=== PATIENT | male | born 1930 | race Caucasian/White ===

== ENCOUNTER 2019-09-30 15:40 | Emergency (ER) | payer OTHER ==
[~2019-09-30] VITALS: Ht 180.3 cm; Wt 99.8 kg
[~2019-09-30 15:40] MED LIST: ALBU90OI INH; ATOR10 PO; Aspirin EC81 MG PO; FISH1000 PO; METO25ER PO; MOME220I INH; MULVITMIND PO; TAMS.4ER PO
[2019-09-30 16:08] LABS: Source, Urine Clean Catch
[2019-09-30 16:17] LABS: Appearance, Urine Clear (Clear); Bilirubin, Urine Neg (Neg); Blood, Urine 5+ (Neg); Color, Urine Yellow (P-Yellow); Glucose Qualitative, Urine Neg (Neg); Ketones, Urine Neg (Neg); Leukocyte Esterase, Urine 1+ (Neg); Nitrite, Urine Neg (Neg); Protein, Urine 3+ (Neg); Urobilinogen, Urine NORM (Normal)
[2019-09-30 16:21] LABS: BASOPHILS ABSOLUTE AUTO 0.02 K/mm3 (0.00-0.23); BASOPHILS PERCENT AUTO 0 % (0-2); EOSINOPHILS ABSOLUTE AUTO 0.21 K/mm3 (0.00-0.68); EOSINOPHILS PERCENT AUTO 3 % (0-6); Hematocrit 46.8 % (37.0-53.0); Hemoglobin 15.1 g/dL (13.5-17.5); IMMATURE GRAN ABSOLUTE AUTO 0.01 K/mm3 (0.00-0.10); IMMATURE GRAN PERCENT AUTO 0 % (0-1); LYMPHOCYTES ABSOLUTE AUTO 2.12 K/mm3 (0.84-5.20); LYMPHOCYTES PERCENT AUTO 29 % (21-46); MONOCYTES ABSOLUTE AUTO 0.77 K/mm3 (0.16-1.47); MONOCYTES PERCENT AUTO 11 % (4-13); Mean Corpuscular HGB 31.3 pg (26.0-34.0); Mean Corpuscular HGB Conc 32.3 g/dL (31.5-36.5); Mean Corpuscular Volume 97 fL (80-100); Mean Platelet Volume 10.9 fL (9.1-12.4); NEUTROPHILS PERCENT AUTO 57 % (41-73); Platelet Count 148 K/mm3 (150-400); RDW Coefficient Variation 13.2 % (11.7-14.2); RDW Standard Deviation 47.3 fL (35.1-46.3); Red Blood Cell Count 4.83 M/mm3 (4.30-5.90); White Blood Cell Count 7.23 K/mm3 (4.00-11.30)
[2019-09-30 16:41] LABS: Alanine Aminotransfer (ALT/SGP 27 U/L (12-78); Albumin, Blood 3.7 g/dL (3.4-5.0); Albumin/Globulin Ratio 0.9 (0.8-1.8); Alk Phos 54 U/L (50-136); Anion Gap 6 mmol/L (6-16); Aspartate Aminotrans (AST/SGOT 28 U/L (12-37); Blood Urea Nitrogen 13 mg/dL (8-24); Bun/Creatinine Ratio 16.8 (12.0-20.0); CO2, Blood 25 mmol/L (21-32); Chloride, Blood 108 mmol/L (98-108); Creatinine, Blood 0.77 mg/dL (0.60-1.20); Globulin, Blood 4.1 g/dL (2.2-4.0); Glomerular Filtration Rate >60 (60-); Glucose, Blood 93 mg/dL (70-99); Potassium, Blood 4.1 mmol/L (3.5-5.5); Sodium, Blood 139 mmol/L (136-145); Total Protein, Blood 7.8 g/dL (6.4-8.2)
[2019-09-30] MEDS ORDERED: ELIQUIS2.5 MG PO (16:47)
[2019-09-30] MEDS ORDERED: ATORVASTATIN CA20 MG PO (16:50)
[2019-09-30] MEDS ORDERED: AMLO5 PO (16:51)
[2019-09-30] MEDS ORDERED: AZIT250 PO (16:51)
[2019-09-30] MEDS ORDERED: LEVA1.25 INH (16:51)
[2019-09-30] MEDS ORDERED: FISH OIL PO (16:52)
[2019-09-30] MEDS ORDERED: TIOT18 INH (16:53)
[2019-09-30] MEDS ORDERED: B Complex-Foli1 EACH PO (16:53)
[2019-09-30 16:56] LABS: Red Blood Cells, Urine 25-50 /hpf (0-2); White Blood Cells, Urine 0-2 /hpf (0-5)
[2019-09-30 16:57] LABS: Bacteria Mod /hpf; Mucus Light (0-Heavy); Squamous Epithelial Cells Few /hpf (Few)
[2019-09-30] MEDS ORDERED: Norco 5-325 Ta1 EACH PO (17:32)
[2019-09-30] MEDS ORDERED: Flomax0.4 MG PO (17:32)
== END 2019-09-30 17:55 | disposition home or self-care (01) ==
LOC: ER 15:40
PROVIDERS: Physician Assistant
DX: N13.2 Hydronephrosis with renal and ureteral calculous obstruction (principal); Z79.899 Other long term (current) drug therapy; Z87.891 Personal history of nicotine dependence
CPT/HCPCS: 36415; 74176; 80053; 81001; 83690; 85025; 87086; 96374; 96375; 99284-25; J1885; J2405; J7030

== ENCOUNTER 2021-07-08 20:57 | Emergency (ER) | payer OTHER ==
[~2021-07-08] VITALS: Ht 180.3 cm; Wt 93.9 kg
[~2021-07-08 20:57] MED LIST changes: +AMLO5 PO; +ATORVASTATIN CA20 MG PO; +AZIT250 PO; +B Complex-Foli1 EACH PO; +ELIQUIS2.5 MG PO; +FISH OIL PO; +Flomax0.4 MG PO; +LEVA1.25 INH; +Norco 5-325 Ta1 EACH PO; +TIOT18 INH
[2021-07-08 21:24] LABS: BASOPHILS ABSOLUTE AUTO 0.04 K/mm3 (0.00-0.23); BASOPHILS PERCENT AUTO 1 % (0-2); EOSINOPHILS PERCENT AUTO 5 % (0-6); Hematocrit 43.7 % (37.0-53.0); Hemoglobin 14.3 g/dL (13.5-17.5); IMMATURE GRAN ABSOLUTE AUTO 0.02 K/mm3 (0.00-0.10); IMMATURE GRAN PERCENT AUTO 0 % (0-1); LYMPHOCYTES ABSOLUTE AUTO 2.23 K/mm3 (0.84-5.20); LYMPHOCYTES PERCENT AUTO 34 % (21-46); MONOCYTES ABSOLUTE AUTO 0.76 K/mm3 (0.16-1.47); MONOCYTES PERCENT AUTO 12 % (4-13); Mean Corpuscular HGB 31.4 pg (26.0-34.0); Mean Corpuscular HGB Conc 32.7 g/dL (31.5-36.5); Mean Corpuscular Volume 96 fL (80-100); Mean Platelet Volume 10.5 fL (9.1-12.4); NEUTROPHILS ABSOLUTE AUTO 3.22 K/mm3 (1.96-9.15); NEUTROPHILS PERCENT AUTO 49 % (41-73); Platelet Count 183 K/mm3 (150-400); RDW Standard Deviation 46.4 fL (35.1-46.3); Red Blood Cell Count 4.56 M/mm3 (4.30-5.90); White Blood Cell Count 6.57 K/mm3 (4.00-11.30)
[2021-07-08 21:44] LABS: Alanine Aminotransfer (ALT/SGP 24 U/L (12-78); Albumin, Blood 3.3 g/dL (3.4-5.0); Albumin/Globulin Ratio 0.8 (0.8-1.8); Alk Phos 58 U/L (50-136); Anion Gap 6 mmol/L (6-16); Aspartate Aminotrans (AST/SGOT 18 U/L (12-37); Bilirubin, Total 0.5 mg/dL (0.1-1.0); Blood Urea Nitrogen 11 mg/dL (8-24); Bun/Creatinine Ratio 14.2 (12.0-20.0); CO2, Blood 29 mmol/L (21-32); Calcium, Blood 9.3 mg/dL (8.5-10.1); Chloride, Blood 107 mmol/L (98-108); Creatinine, Blood 0.78 mg/dL (0.60-1.20); Globulin, Blood 4.1 g/dL (2.2-4.0); Glomerular Filtration Rate >60 (60-); Glucose, Blood 103 mg/dL (70-99); Potassium, Blood 3.9 mmol/L (3.5-5.5); Sodium, Blood 142 mmol/L (136-145); Total Protein, Blood 7.4 g/dL (6.4-8.2); Troponin I <0.015 ng/mL (0.000-0.040)
== END 2021-07-09 00:47 | disposition home or self-care (01) ==
LOC: ER 20:57
PROVIDERS: Emergency Medicine
DX: I48.91 Unspecified atrial fibrillation (principal); R07.89 Other chest pain; I25.10 Atherosclerotic heart disease of native coronary artery without angina pectoris; Z88.8 Allergy status to other drugs, medicaments and biological substances; Z87.891 Personal history of nicotine dependence
CPT/HCPCS: 71046; 80053; 84484; 85025; 93005; 93010; 99285-25

== ENCOUNTER 2022-02-13 19:53 | Inpatient (IN) | payer OTHER ==
[~2022-02-13] VITALS: Ht 175.3 cm; Wt 90.7 kg
[2022-02-13 20:53] LABS: Hematocrit 37.3 % (37.0-53.0); Hemoglobin 12.7 g/dL (13.5-17.5); Mean Corpuscular HGB 31.4 pg (26.0-34.0); Mean Corpuscular Volume 92 fL (80-100); Mean Platelet Volume 11.4 fL (9.1-12.4); Platelet Count 86 K/mm3 (150-400); RDW Coefficient Variation 13.7 % (11.7-14.2); RDW Standard Deviation 46.9 fL (35.1-46.3); Red Blood Cell Count 4.05 M/mm3 (4.30-5.90); White Blood Cell Count 7.76 K/mm3 (4.00-11.30)
[2022-02-13 21:04] LABS: Albumin/Globulin Ratio 0.9 (0.8-1.8); Bilirubin, Total 0.8 mg/dL (0.1-1.0); Bun/Creatinine Ratio 26.7 (12.0-20.0); Calcium, Blood 8.2 mg/dL (8.5-10.1); Creatinine, Blood 0.71 mg/dL (0.60-1.20); Globulin, Blood 3.4 g/dL (2.2-4.0); Potassium, Blood 3.1 mmol/L (3.5-5.5); Total Protein, Blood 6.4 g/dL (6.4-8.2)
[2022-02-13 21:11] LABS: Magnesium, Blood 1.6 mg/dL (1.6-2.4)
[2022-02-13 21:12] LABS: Source, Urine Clean Catch
[2022-02-13 21:15] LABS: Appearance, Urine Hazy (Clear); Bilirubin, Urine Neg (Neg); Blood, Urine 4+ (Neg); Color, Urine Yellow (P-Yellow); Glucose Qualitative, Urine Neg (Neg); Ketones, Urine 3+ (Neg); Leukocyte Esterase, Urine Neg (Neg); Nitrite, Urine Neg (Neg); Protein, Urine 3+ (Neg); Specific Gravity, Urine 1.025 (1.003-1.022); Urobilinogen, Urine NORM (Normal)
[2022-02-13 21:17] LABS: BAND PERCENT MAN 33 % (0-8); BASOPHILS PERCENT MAN 0 % (0-2); EOSINOPHILS PERCENT MAN 0 % (0-6); LYMPHOCYTES % ATYPICAL MANUAL 1 % (0-0); LYMPHOCYTES ABSOLUTE MAN 0.62 K/mm3 (0.84-5.20); LYMPHOCYTES PERCENT MAN 7 % (21-46); MONOCYTES ABSOLUTE MAN 0.77 K/mm3 (0.16-1.47); MONOCYTES PERCENT MAN 10 % (4-13); NEUTROPHILS ABSOLUTE MAN 6.36 K/mm3 (1.96-9.15); SEG NEUTROPHILS PERCENT MAN 49 % (41-73); TOTAL CELLS COUNTED 100
[2022-02-13 21:22] LABS: Amorphous Light (0-Heavy); Bacteria Mod /hpf; Squamous Epithelial Cells Not Seen /hpf (Few); White Blood Cells, Urine 0-2 /hpf (0-5)
[2022-02-13 21:29] LABS: Influenza A, PCR NEGATIVE (NEGATIVE); Influenza B, PCR NEGATIVE (NEGATIVE); Resp Syncytial Virus, PCR NEGATIVE (NEGATIVE)
[2022-02-13 21:32] LABS: SARS-Cov-2 (COVID-19) PCR, MMC POSITIVE (NEGATIVE)
--- NOTE | 2022-02-14 04:39 | NUR ---
SHIFT SUMMARY 89 YR M ADMITTED ON 02/13/22 FOR RESPIRATORY FAILURE/COVID 19. DNR. PT TRANSFERED FROM ED AFTER C/O SEVERE WEAKNESS X SEVERAL DAYS. HIS FAMILY CLAIMS HE IS NORMALLY VERY ACTIVE BUT HE IS VERY WEAK AT THIS TIME. HE DENIES CHEST PAIN AND SOB BUT HIS BREATHING IS OBVIOUSLY LABORED. CURRENTLY ON 2.5 L O2 BUT HIS BASELINE IS R/A.LOW GRADE TEMP RESOLVED W/ TYLENOL. PT IS ELY SHOSHONE BUT IS PLEASANT AND COOPERATIVE.
[2022-02-14 12:24] LABS: Adenovirus F 40/41 Not Detected (NOT DETECT); Astrovirus Not Detected (NOT DETECT); Campylobacter Sp Not Detected (NOT DETECT); Cryptosporidium Not Detected (NOT DETECT); Cyclospora Cayetanensis Not Detected (NOT DETECT); E. Coli O157 Not Detected (NOT DETECT); Entamoeba Histolytica Not Detected (NOT DETECT); Enteroaggregative E. coli-EAEC Not Detected (NOT DETECT); Enteropathogenic E. coli-EPEC Not Detected (NOT DETECT); Enterotoxigenic E. coli-ETEC Not Detected (NOT DETECT); Giardia Lamblia Not Detected (NOT DETECT); Norovirus GI/GII Not Detected (NOT DETECT); Plesiomonas Shigelloides Not Detected (NOT DETECT); Rotavirus A Not Detected (NOT DETECT); Salmonella Sp Not Detected (NOT DETECT); Sapovirus Not Detected (NOT DETECT); Shiga Toxin-prod E. coli-STEC Not Detected (NOT DETECT); Shigella/Enteroin E. coli-EIEC Not Detected (NOT DETECT); Vibrio Cholerae Not Detected (NOT DETECT); Vibrio Sp Not Detected (NOT DETECT); Yersinia Enterocolitica Not Detected (NOT DETECT)
--- NOTE | 2022-02-14 19:56 | NUR ---
SUMMARY- PT A/O X3. UP IN CHAIR THIS AM AND FOR MEALS. AMBULATES TO BATHROOM SBA. KNOWS HIS LIMITS AND USES HIS CALL LIGHT. RESP EVEN AND UNLABORED. OXYGEN 2L/NC, LUNGS CLEAR, DIM BASES, SATS 97%, NO SOB OR DYSPNEA NOTED WITH ACTIVITY. MAIN COMPLAINT IS WEAKNESS. TOLERATING FOOD AND FLUIDS. IVF NS @75ML/HR. HAVING LOOSE STOOL. STARTING ON BANANA FLAKES. GI PANAL NEGATIVE. REPORTED ALL TO NOC RN.
[2022-02-15 05:16] LABS: Hematocrit 39.7 % (37.0-53.0); Hemoglobin 13.5 g/dL (13.5-17.5); Mean Corpuscular Volume 91 fL (80-100); Mean Platelet Volume 11.7 fL (9.1-12.4); Platelet Count 80 K/mm3 (150-400); RDW Coefficient Variation 13.7 % (11.7-14.2); RDW Standard Deviation 46.7 fL (35.1-46.3); Red Blood Cell Count 4.35 M/mm3 (4.30-5.90); White Blood Cell Count 7.67 K/mm3 (4.00-11.30)
--- NOTE | 2022-02-15 05:23 | NUR ---
PT CONTINUES TO BE INCONTINENT WITH LIQUID BROWN STOOL. PT IS A 1 PERSON ASSIST TO THE BATHROOM. IV INFUSING, ALERT AND ORIENTED WITH SHORT TERM MEMORY LOSS.
[2022-02-15 05:30] LABS: Albumin, Blood 2.6 g/dL (3.4-5.0); Albumin/Globulin Ratio 0.8 (0.8-1.8); Bilirubin, Total 0.7 mg/dL (0.1-1.0); Bun/Creatinine Ratio 29.5 (12.0-20.0); Calcium, Blood 8.4 mg/dL (8.5-10.1); Creatinine, Blood 0.54 mg/dL (0.60-1.20); Globulin, Blood 3.4 g/dL (2.2-4.0); Magnesium, Blood 1.8 mg/dL (1.6-2.4); Potassium, Blood 3.4 mmol/L (3.5-5.5); Thyroid Stimulating Hormone 0.548 uIU/mL (0.360-4.800)
--- NOTE | 2022-02-15 17:57 | NUR ---
SHIFT SUMMARY PATIENT A&0X3, HX DEMENTIA. SBA WITH WALKER TO BSC AND CHAIR. COVID +. ON 2L O2 VIA NC. MOIST COUGH PRESENT. POOR APPETITE, ONLY EATING A FEW BITES T/O SHIFT AND SIPPING WATER. 1 EPISODE OF LIQUID DIARRHEA. RECEIVING IV FLUIDS. LOW GRADE TEMP. OTHER VITALS STABLE. WILL CONTINUE TO MONITOR.
[2022-02-16 05:15] LABS: Hematocrit 38.8 % (37.0-53.0); Hemoglobin 13.2 g/dL (13.5-17.5); Mean Corpuscular HGB 31.1 pg (26.0-34.0); Mean Corpuscular Volume 91 fL (80-100); Mean Platelet Volume 11.7 fL (9.1-12.4); Platelet Count 89 K/mm3 (150-400); RDW Coefficient Variation 13.7 % (11.7-14.2); RDW Standard Deviation 46.5 fL (35.1-46.3); Red Blood Cell Count 4.25 M/mm3 (4.30-5.90); White Blood Cell Count 7.99 K/mm3 (4.00-11.30)
[2022-02-16 05:36] LABS: Albumin, Blood 2.3 g/dL (3.4-5.0); Albumin/Globulin Ratio 0.7 (0.8-1.8); Bun/Creatinine Ratio 27.7 (12.0-20.0); Calcium, Blood 8.1 mg/dL (8.5-10.1); Creatinine, Blood 0.51 mg/dL (0.60-1.20); Globulin, Blood 3.3 g/dL (2.2-4.0); Total Protein, Blood 5.6 g/dL (6.4-8.2)
--- NOTE | 2022-02-16 06:17 | NUR ---
SHIFT SUMMARY NOC: PT SLEPT ALL NIGHT. PT VERY WEAK, INITIALLY UNABLE TO SIT UP IN BED THIS AM TO USE URINAL. AFTER AWHILE OF TRYING PT WAS ABLE TO SIT UP IN BED BUT UNABLE TO STAND. PT REMAINS ON 2L NC LUNGS WET CONGESTED WITH NON PRODUCTIVE COUGH, SOB WITH EXERTION.
[2022-02-16] MEDS ORDERED: PROAIR DIGIHAL90 MCG INH (13:58)
[2022-02-16] MEDS ORDERED: BANATROL PLUS1 EAC1 PO (13:59)
[2022-02-16] MEDS ORDERED: VITAMIN D5000 UNIT PO (14:00)
[2022-02-16] MEDS ORDERED: DECADRON6 M1 (14:01)
--- NOTE | 2022-02-16 18:31 | NUR ---
DISCHARGE PT DISCHARGED AT 1726. PRIOR TO DC, PT AND HIS GRANDDAUGHTER WERE EDUCATED ON NEW MEDS AND FOLLOW UP INSTRUCTIONS. PORTABLE O2 DELIVERED AND SENT WITH THE PT. NO ACUTE CHANGES IN ASSESSMENT PRIOR TO DC. PT GRANDDAUGHTER ENCOURAGED TO ENCOURAGE TO PT TO INCREASE PO INTAKE. PT STATES HE WILL EAT MORE WHEN HE GETS HOME. HOME HEALTH TO FOLLOW UP. NO OTHER ACUTE CHANGES IN ASSESSMENT PRIOR TO DC.
== END 2022-02-16 17:26 | disposition home health service (06) | DRG 177 ==
LOC: ER 19:53 → MEDS 22:30
PROVIDERS: Emergency Medicine; Internal Medicine; ADMIT Internal Medicine
PROC: 8E0ZXY6 Isolation (ICD-10-PCS; principal; 2022-02-13)
PROC: XW033E5 Introduction of Remdesivir Anti-infective into Peripheral Vein, Percutaneous Approach, New Technology Group 5 (ICD-10-PCS; 2022-02-13)
PROC: 3E0333Z Introduction of Anti-inflammatory into Peripheral Vein, Percutaneous Approach (ICD-10-PCS; 2022-02-13)
DX: U07.1 COVID-19 (principal); J12.82 Pneumonia due to coronavirus disease 2019; J96.01 Acute respiratory failure with hypoxia; J44.0 Chronic obstructive pulmonary disease with (acute) lower respiratory infection; I48.20 Chronic atrial fibrillation, unspecified; I25.10 Atherosclerotic heart disease of native coronary artery without angina pectoris; E78.5 Hyperlipidemia, unspecified; N40.0 Benign prostatic hyperplasia without lower urinary tract symptoms; Z66 Do not resuscitate; G30.9 Alzheimer's disease, unspecified; F02.80 Dementia in other diseases classified elsewhere, unspecified severity, without behavioral disturbance, psychotic disturbance, mood disturbance, and anxiety; D69.59 Other secondary thrombocytopenia; E87.6 Hypokalemia; Z96.659 Presence of unspecified artificial knee joint; E86.0 Dehydration; Z87.442 Personal history of urinary calculi; Z90.49 Acquired absence of other specified parts of digestive tract; Z95.0 Presence of cardiac pacemaker; Z87.891 Personal history of nicotine dependence; Z88.8 Allergy status to other drugs, medicaments and biological substances; Z79.01 Long term (current) use of anticoagulants; Z79.899 Other long term (current) drug therapy
CPT/HCPCS: 0241U; 36415; 71045; 80053; 81001; 83605; 83735; 83880; 84145; 84443; 85025; 85027; 87040; 87086; 87507; 93005; 93010; 94640; 94664; 94760; 96374; 97110; 97116; 97162; 97530; 99285-25; A9270; J0248; J1100; J7030; J7050